=== PATIENT | male | born 1945 | race Caucasian/White ===

== ENCOUNTER 2022-01-01 10:13 | Inpatient (IN) | payer MEDICARE ==
[~2022-01-01] VITALS: Ht 185.4 cm; Wt 97.2 kg
[~2022-01-01 10:13] MED LIST: AMLO10TA13 PO; CLOP75TA34 PO; PANT-47 PO
[2022-01-01] MEDS ORDERED: iohexol 350MG/ML 100ml bottle IV ONE (10:35)
[2022-01-01 10:59] LABS: BASOPHILS # (AUTO) 0.1 X10'3 (0-0.2); BASOPHILS % (AUTO) 1.2 % (0-1); EOSINOPHILS # (AUTO) 0.1 X10'3 (0-0.9); EOSINOPHILS % (AUTO) 1.6 % (0-6); HEMATOCRIT 45.4 % (42.0-52.0); HEMOGLOBIN 15.6 g/dl (14.0-17.9); LYMPHOCYTES # (AUTO) 2.2 X10'3 (1.1-4.8); LYMPHOCYTES % (AUTO) 33.6 % (21-51); MEAN CORPUSCULAR HEMOGLOBIN 31.6 PG (27.0-31.0); MEAN CORPUSCULAR HGB CONC 34.4 g/dL (33.0-36.5); MEAN CORPUSCULAR VOLUME 92.1 FL (78-98); MEAN PLATELET VOLUME 8.6 FL (7.4-10.4); MONOCYTES # (AUTO) 0.7 X10'3 (0-0.9); MONOCYTES % (AUTO) 10.2 % (2-12); NEUTROPHILS # (AUTO) 3.5 X10'3 (1.8-7.7); NEUTROPHILS % (AUTO) 53.4 % (42-75); PLATELET COUNT 197 X10'3 (140-440); RED BLOOD COUNT 4.92 X10'6 (4.70-6.10); RED CELL DISTRIBUTION WIDTH 13.4 % (11.5-14.5); WHITE BLOOD COUNT 6.6 X10'3 (4.5-11.0)
[2022-01-01 11:12] LABS: APTT 26 SECONDS (22-32)
[2022-01-01 11:15] LABS: ALANINE AMINOTRANSFERASE 33 U/L (12-78); ALBUMIN 3.9 G/DL (3.4-5.0); ALKALINE PHOSPHATASE 67 IU/L (46-116); ANION GAP 13 (8-16); ASPARTATE AMINO TRANSFERASE 17 U/L (10-37); BILIRUBIN,TOTAL 0.8 MG/DL (0.1-1.0); BLOOD UREA NITROGEN 17 MG/DL (7-18); BUN/CREATININE RATIO 16.2 (5.4-32.0); CALCIUM 9.6 MG/DL (8.5-10.1); CHLORIDE 103 MMOL/L (99-107); CREATININE 1.05 MG/DL (0.60-1.10); GLUCOSE 149 MG/DL (70-104); POTASSIUM 3.4 MMOL/L (3.5-5.1); SODIUM 140 MMOL/L (135-145); TOTAL CARBON DIOXIDE 23.9 MMOL/L (24-32); TOTAL PROTEIN 7.8 G/DL (6.4-8.2); eGFR 69 ML/MIN
[2022-01-01] MEDS ORDERED: acetaminophen 325mg tablet PO PRN (12:15)
[2022-01-01] MEDS ORDERED: magnesium 2GM in 50ml NS 50 ML IV PRN (12:15)
[2022-01-01] MEDS ORDERED: ondansetron/PF 4mg/2ml inj IV PRN (12:15)
[2022-01-01] MEDS ORDERED: potassium Cl 20 mEq SR tablet PO PRN ×2 (12:15)
[2022-01-01] MEDS ORDERED: atorvastatin 20mg tablet PO ONE (12:15)
[2022-01-01] MEDS ORDERED: potassium CL 10mEq/100ml bag 100 ML IV PRN (12:15)
[2022-01-01] MEDS ORDERED: magnesium 4gm in 100ml NS 100 ML IV PRN (12:15)
[2022-01-01] MEDS ORDERED: naloxone 0.4 mg/ml inj IV PRN (12:15)
--- NOTE | 2022-01-01 13:13 | NUR ---
pt eating. no reported complaints at this time.
[2022-01-01] MEDS ORDERED: aspirin 81mg, enteric-coated 1 TAB TABLET.DR PO ONE (13:55)
[2022-01-01 14:18] LABS: HEMOGLOBIN A1C 6.1 % (4.5-6.2)
[2022-01-01] MEDS ORDERED: AMLO10TA48 PO (15:46)
[2022-01-01] MEDS ORDERED: CLOP75TA34 PO (15:46)
[2022-01-01] MEDS ORDERED: ATOR-2 PO (15:46)
--- NOTE | 2022-01-01 16:08 | NUR ---
BACK FROM MRI. NO ISSUES.
--- NOTE | 2022-01-01 18:25 | NUR ---
REPORT GIVEN TO COLETTE CHANDLER.
--- NOTE | 2022-01-01 18:39 | NUR ---
Introduced self to pt. Pt eating dinner. Pt pink, alert, no acute/resp distress. Denies pain. Left sided numbness persists. Bed in lowest position, wheels locked, rail 2/2 up. Pt laying supine, able to reposition self as needed. PIV site c/d/i s complication or adverse
[2022-01-01] MEDS: K and/or MAG REPLACEMENT MC SCH (19:53)
[2022-01-01] MEDS: docusate sod 100mg capsule PO SCH (19:55)
--- NOTE | 2022-01-01 20:27 | NUR ---
Report called to floor. Pt pink, alert, no acute/resp distress.
[2022-01-01 21:00] VITALS: BP 156/78
[2022-01-01 22:00] VITALS: BP 165/78
[2022-01-02 02:00] VITALS: BP 137/75
[2022-01-02 06:00] VITALS: BP 140/77
--- NOTE | 2022-01-02 06:32 | NUR ---
Problems reprioritized. Patient report given, questions answered & plan of care reviewed with Gail ALVARENGA.
[2022-01-02 07:20] LABS: BASOPHILS # (AUTO) 0.1 X10'3 (0-0.2); BASOPHILS % (AUTO) 1.2 % (0-1); EOSINOPHILS # (AUTO) 0.2 X10'3 (0-0.9); EOSINOPHILS % (AUTO) 3.3 % (0-6); HEMATOCRIT 44.5 % (42.0-52.0); HEMOGLOBIN 15.2 g/dl (14.0-17.9); LYMPHOCYTES % (AUTO) 30.9 % (21-51); MEAN CORPUSCULAR HEMOGLOBIN 31.3 PG (27.0-31.0); MEAN CORPUSCULAR HGB CONC 34.2 g/dL (33.0-36.5); MEAN CORPUSCULAR VOLUME 91.7 FL (78-98); MONOCYTES # (AUTO) 0.8 X10'3 (0-0.9); MONOCYTES % (AUTO) 12.4 % (2-12); NEUTROPHILS # (AUTO) 3.4 X10'3 (1.8-7.7); NEUTROPHILS % (AUTO) 52.2 % (42-75); PLATELET COUNT 191 X10'3 (140-440); RED BLOOD COUNT 4.85 X10'6 (4.70-6.10); RED CELL DISTRIBUTION WIDTH 13.9 % (11.5-14.5); WHITE BLOOD COUNT 6.5 X10'3 (4.5-11.0)
[2022-01-02 07:47] LABS: ALANINE AMINOTRANSFERASE 29 U/L (12-78); ALBUMIN/GLOBULIN RATIO 1.1 (1.1-1.5); ALKALINE PHOSPHATASE 69 IU/L (46-116); ANION GAP 9 (8-16); ASPARTATE AMINO TRANSFERASE 17 U/L (10-37); BILIRUBIN,TOTAL 1.2 MG/DL (0.1-1.0); BLOOD UREA NITROGEN 15 MG/DL (7-18); BUN/CREATININE RATIO 14.6 (5.4-32.0); CALCIUM 9.4 MG/DL (8.5-10.1); CHLORIDE 106 MMOL/L (99-107); CHOL/HDL RATIO 2.8 (0.00-4.99); CHOLESTEROL 110 MG/DL (0-200); CREATININE 1.03 MG/DL (0.60-1.10); GLUCOSE 123 MG/DL (70-104); HDL CHOLESTEROL 40 MG/DL (35-60); LDL CHOLESTEROL 61 MG/DL (50-100); MAGNESIUM 2.2 MG/DL (1.5-2.4); POTASSIUM 3.9 MMOL/L (3.5-5.1); SODIUM 141 MMOL/L (135-145); TOTAL CARBON DIOXIDE 26.2 MMOL/L (24-32); TOTAL PROTEIN 7.6 G/DL (6.4-8.2); TRIGLYCERIDES 135 MG/DL (20-135); eGFR 70 ML/MIN
[2022-01-02] MEDS ORDERED: pantoprazole 40mg Tablet.DR PO SCH (08:00)
[2022-01-02] MEDS ORDERED: atorvastatin 20mg tablet PO SCH ×2 (08:00)
[2022-01-02] MEDS: K and/or MAG REPLACEMENT MC SCH (08:00)
[2022-01-02] MEDS ORDERED: aspirin 81mg, enteric-coated 1 TAB TABLET.DR PO SCH (08:00)
[2022-01-02] MEDS ORDERED: clopidogrel 75mg tablet PO SCH (08:00)
[2022-01-02] MEDS: docusate sod 100mg capsule PO SCH (08:31)
[2022-01-02 11:00] VITALS: BP 153/80
[2022-01-02] MEDS ORDERED: ASPI-920 PO (13:55)
--- NOTE | 2022-01-02 14:26 | NUR ---
PT paged regarding patient discharge. Dr. Ponce would like patient to be evaluated before DC.
[2022-01-02 15:00] VITALS: BP 153/66
--- NOTE | 2022-01-02 16:55 | NUR ---
Discharge paperwork reviewed with patient. IV removed, catheter tip intact. Belongings and walker taken down by daughter who was present at bedside for discharge. Medications received from pharmacy, given to patient. Patient free from injuries.
== END 2022-01-02 16:43 | disposition home or self-care (01) | DRG 64 ==
LOC: ER 10:14 → ED HOLD 12:18 → EDBEDREQTM 19:51 → EDBEDREQ 19:51 → PCU 3S 20:23
PROVIDERS: ADMIT Family Medicine; ATTEND Family Medicine
PROC: B3251ZZ Computerized Tomography (CT Scan) of Bilateral Common Carotid Arteries using Low Osmolar Contrast (ICD-10-PCS; principal; 2022-01-01)
PROC: B32G1ZZ Computerized Tomography (CT Scan) of Bilateral Vertebral Arteries using Low Osmolar Contrast (ICD-10-PCS; 2022-01-01)
PROC: B32R1ZZ Computerized Tomography (CT Scan) of Intracranial Arteries using Low Osmolar Contrast (ICD-10-PCS; 2022-01-01)
PROC: B3281ZZ Computerized Tomography (CT Scan) of Bilateral Internal Carotid Arteries using Low Osmolar Contrast (ICD-10-PCS; 2022-01-01)
DX: I63.89 Other cerebral infarction (principal); I21.A1 Myocardial infarction type 2; E78.00 Pure hypercholesterolemia, unspecified; E78.5 Hyperlipidemia, unspecified; K21.9 Gastro-esophageal reflux disease without esophagitis; E87.6 Hypokalemia; G93.89 Other specified disorders of brain; I10 Essential (primary) hypertension; R29.702 NIHSS score 2; Z79.02 Long term (current) use of antithrombotics/antiplatelets; Z86.73 Personal history of transient ischemic attack (TIA), and cerebral infarction without residual deficits; Z87.891 Personal history of nicotine dependence; Z91.81 History of falling; Z88.0 Allergy status to penicillin; Z79.899 Other long term (current) drug therapy; Z98.52 Vasectomy status; Z82.49 Family history of ischemic heart disease and other diseases of the circulatory system; Z80.59 Family history of malignant neoplasm of other urinary tract organ
CPT/HCPCS: 36415; 70450; 70496; 70498; 70551; 71045; 80053; 80061; 83036; 83735; 84484; 85025; 85610; 85730; 87081; 93005; 93306; 97116; 97161; 97530; 99291; G0378; Q9967